=== PATIENT | female | born 1970 | race Caucasian/White ===

== ENCOUNTER 2016-08-03 08:31 | Day surgery (SDC) | payer OTHER ==
--- NOTE | 2016-08-03 07:17 | History and Physical Report ---
DATE: 08/03/2016. CHIEF COMPLAINT: This patient presents with a history of an intractable lumbar radiculitis. HISTORY OF PRESENT ILLNESS: Due to the failure of all therapies, a spinal cord stimulator trial was conducted with 75 to 90 percent pain control. Due to the failure of previous therapies and the success of the trial, she presents today for implantation of a permanent system. PAST MEDICAL HISTORY: Asthmatic bronchitis, hypertension. PAST SURGICAL HISTORY: To be provided. EMPLOYMENT STATUS: Works stores despatch hand. MEDICATIONS ON ADMISSION: To be provided. ALLERGIES: Penicillin, sulfa, Ceclor, Keflex. SOCIAL HISTORY: Caffeine. FAMILY HISTORY: Asthma, diabetes, coronary artery disease, hypertension. REVIEW OF SYSTEMS: The patient is appropriate and in no acute distress. The remainder of the systems reviews shows glasses, hearing aids, breathing difficulties, sleep disturbance, blood pressure issues, bladder dysfunction, depression, difficulty sleeping. PHYSICAL EXAMINATION: General: Height is 5 feet, 8 inches. Weight is 220 pounds. Vital Signs: Unavailable. HEENT: Within normal limits. Lungs: Clear. Heart: Regular rate and rhythm. Abdomen: Nontender. Musculoskeletal: Examination of the musculoskeletal system shows diffuse tenderness in the lumbar spine. Range of motion produces pain into both legs. Ambulation: No assistive device utilized. Neurologic: Cranial nerves are intact. IMPRESSION: LUMBAR RADICULITIS, ICD-10 CODE M54.16 AND M54.17. PLAN: Due to the failure of all therapies and the success of the trial, she presents today for implantation of a permanent system. All of the potential risks, side effects, and complications have been carefully reviewed and discussed including dural puncture, spinal headache, spinal cord injury, and nerve root trauma. The information provided by the outside sales account executive was carefully reviewed and discussed. The information was provided for the patient for her own review. All questions were answered. She has consented and will have the procedure today. We will consider this outpatient, although an overnight stay will be evaluated. NAM MCGRATH D.O. Date & Time cc: Erinn Peralta Dr. JOB NUMBER: [id number] [facility]
[~2016-08-03 08:31] MED LIST: CLINDAMYCIN 600MG/50ML PREMIX 600 MG/50 ML BAG IVPB ONE; FAMOTIDINE 20MG TABLET PO ONE; MECLIZINE 25 MG TABLET PO ONE; METOCLOPRAMIDE 10 MG TABLET PO ONE
[2016-08-03] MEDS ORDERED: ACETAMINOPHEN 325 MG TAB PO PRN ×2 (12:29)
[2016-08-03] MEDS ORDERED: HYDROCODONE/APAP 7.5/325MG TABLET PO PRN ×2 (12:29)
[2016-08-03] MEDS ORDERED: DIPHENHYDRAMINE HCL IV 50 MG/ML VIAL IVP PRN ×2 (12:29)
[2016-08-03] MEDS ORDERED: TEMAZEPAM 15 MG CAPSULE PO PRN ×2 (12:29)
[2016-08-03] MEDS ORDERED: AL HYDROX/MAG HYDROX 30ML UD PO PRN (12:29)
[2016-08-03] MEDS ORDERED: METOCLOPRAMIDE 10 MG TABLET PO PRN (12:29)
[2016-08-03] MEDS ORDERED: HYDROMORPHONE HCL 2 MG/ML VIAL IM PRN (12:29)
[2016-08-03] MEDS ORDERED: SENNOSIDES/DOCUSATE SODIUM UD CAPSULE PO PRN ×2 (12:29)
[2016-08-03] MEDS ORDERED: DIPHENHYDRAMINE HCL 25 MG CAPSULE PO PRN ×2 (12:29)
[2016-08-03] MEDS ORDERED: HYDROMORPHONE HCL 1 MG/ML CPJ IM PRN (12:29)
[2016-08-03] MEDS ORDERED: OXYCODONE/APAP 10MG-325MG TABLET PO PRN (12:29)
[2016-08-03] MEDS ORDERED: METOCLOPRAMIDE HCL 10 MG/2 ML VIAL IVP PRN (12:29)
[2016-08-03] MEDS: OXYCODONE/APAP 10MG-325MG TABLET PO PRN ×2 (13:40→18:37)
[2016-08-03] MEDS ORDERED: LIDOCAINE 2% MDV (20MG/ML) 20ML VIAL IV ONE (14:00)
[2016-08-03] MEDS ORDERED: MIDAZOLAM HCL 2MG/2ML VIAL IV ONE (14:00)
[2016-08-03] MEDS ORDERED: PROPOFOL 10 MG/ML VIAL IV ONE (14:00)
[2016-08-03] MEDS ORDERED: *PACU ONLY* KETAMINE HCL 10 MG/ML (20ML) VIAL IV ONE (14:00)
[2016-08-03] MEDS ORDERED: HYDROMORPHONE HCL 2 MG/ML VIAL IV ONE ×2 (14:00→16:47)
--- NOTE | 2016-08-03 15:44 | Operative Note - Ferro ---
DATE OF SURGERY: 08/03/16 PREOPERATIVE DIAGNOSIS: LUMBAR RADICULITIS, ICD-10 CODE = M54.16 AND M54.17. OPERATION: 1. FLUOROSCOPICALLY-GUIDED EPIDURAL ACCESS LEFT T11/12, PLACEMENT OF SPINAL CORD STIMULATOR LEAD 1, A [employer] INFINION 16 WITH 16 ELECTRODES POSITIONED LEFT T6. 2. COMPLEX PROGRAMMING LEAD 1, 20 MINUTES. 3. FLUOROSCOPICALLY-GUIDED EPIDURAL ACCESS LEFT T12/L1, PLACEMENT OF SPINAL CORD STIMULATOR LEAD 2, A [employer] INFINION 16 WITH 16 ELECTRODES POSITIONED RIGHT T6. 4. COMPLEX PROGRAMMING LEAD 2, 20 MINUTES. 5. INCISION, SUBCUTANEOUS DISSECTION, AND ANCHORING OF LEAD 1 AND LEAD 2 TO SUPRASPINOUS FASCIA USING [employer] LOCKING ANCHOR. 6. INCISION, SUBCUTANEOUS DISSECTION, AND CREATION OF SUBCUTANEOUS POUCH AT LEFT POSTERIOR GLUTEAL MARGIN FOR PLACEMENT OF GENERATOR IDENTIFIED A [employer] PROGRAMMABLE RECHARGEABLE. 7. TUNNELING BETWEEN POUCHES. PLACEMENT OF EXTERNAL PORTION OF LEAD 1 AND LEAD 2 INTO GENERATOR POUCH EACH LEAD INTERFACED WITH A BIFURCATED EXTENSION, EACH BIFURCATED EXTENSION INTERFACED TO GENERATOR. 8. PLACEMENT OF GENERATOR IN POUCH SECURING TO FASCIA WITH NONABSORBABLE SUTURE. PLACEMENT OF LEADS INTO POUCH. CLOSURE OF BOTH INCISIONS VICRYL FOR FASCIA AND RUNNING SUBCUTICULAR VICRYL FOR SKIN. DERMABOND CLOSURE. 9. COMPLEX PROGRAMMING INTERNAL GENERATOR, RECOVERY ROOM, HOME USE, TWO STIMULATORS, 20 MINUTES. SURGEON: NAM MCGRATH D.O. ANESTHESIA: LOCAL SEDATION. ANESTHESIA PROVIDER: JORGE YIN CRNA INDICATION: This patient presents with a history of an intractable lumbar radiculitis. Due to the failure of therapy, spinal cord stimulator trial is conducted with 75-90% pain control. Due to the failure of other therapies and the success of the trial, the patient presents for implantation of a permanent system. DESCRIPTION OF PROCEDURE: Intravenous line, vital sign monitoring, IV sedation. Prepped and draped with sterile technique. Under imaging, the epidural interspace at T11/12 and T121/1 on the left were identified and marked after the skin was infiltrated. Two separate curved access Epimed needles with [id number] into the space. At 11/12, spinal cord stimulator, lead 1, a [employer] Infinion 16 with 16 electrodes positioned left of midline at T6. With the epidural access at /, curved access Epimed needle, spinal cord stimulator lead 2, also an Infinion 16 with 16 electrodes positioned right at T6. Complex programming of lead 1, over 20 minutes followed by complex programming of lead 2, over 20 minutes resulting in patterns of stimulation across the back and into the legs. Patient indicating we were in all of the appropriate areas of her pain. She was given the option to implant or continue to program; she opted to implant. Questions were repeated with the same response. The skin above and below both needles was infiltrated, incision made, and subcutaneous dissection was conducted to the supraspinous fascia. The needles were removed and each lead was anchored to the fascia with a [employer] [place] and nonabsorbable suture. At the left posterior/superior gluteal margin or a site picked by the patient for the generator identified as a [employer]mable Rechargeable, skin infiltrated, incision made, and subcutaneous dissection was conducted to form a pouch of suitable size and depth for the generator. A tunneling tool was used to carry the leads into the generator pouch and then each lead was interfaced with a bifurcated extension. Each bifurcated extension was interfaced to the generator. Antibiotic irrigation and Bovie for hemostasis. The leads were then coiled and placed into the pouch. The generator was placed in the pouch and secured to the fascia with nonabsorbable suture and then the incisions were closed with Vicryl for fascia and running subcuticular Vicryl for skin. Dermabond closure. She was transported to the Recovery Room stable, showing no side-effects from the procedure or the sedation. Because of the amount of surgery, she will be kept overnight for observation and then discharged in the morning. DISCHARGE INSTRUCTIONS: 1. The sites will remain clean and dry. No showering or bathing in any way that would disrupt dressings except the Dermabond will allow showering in 12-24 hours. 2. Standard medications will be resumed including Levaquin, the antibiotic, 500 mg once a day for 14 days. 3. All other instructions relative to the activity levels will be kept low until she is seen in 5-7 days in the office to evaluate the incisional sites. Bend, lift, push, pull should be kept to a minimum. The remainder of the instructions provided, numbers to contact, and problems given. She will then be prepared for discharge in the morning. cc: Dr. Guido JOB [facility]BER: [id number] [facility]
[2016-08-03] MEDS ORDERED: CLINDAMYCIN 600MG/4 ML VIAL IV ONE (16:47)
[2016-08-03] MEDS ORDERED: LIDOCAINE 1% W/EPI 1:200,000 MPF 30ML SQ ONE (16:47)
[2016-08-03] MEDS ORDERED: BUPIVACAINE 0.5% W/EPI MPF 30 ML VIAL IVP ONE (16:47)
[2016-08-03] MEDS: CLINDAMYCIN 600MG/50ML PREMIX 600 MG/50 ML BAG IVPB SCH (16:53)
[2016-08-03] MEDS: BACLOFEN 10 MG TABLET PO SCH ×2 (16:53→21:13)
[2016-08-03] MEDS: BUSPIRONE 5 MG TABLET PO SCH (21:07)
[2016-08-03] MEDS: METFORMIN 500 MG TABLET PO SCH (21:09)
[2016-08-03] MEDS: PREGABALIN 50 MG CAPSULE PO SCH (21:12)
[2016-08-03] MEDS: 0.9 % SODIUM CHLORIDE 10ML SYR IVP SCH (21:15)
[2016-08-03] MEDS ORDERED: TOPIRAMATE 100MG TABLET PO SCH (22:00)
[2016-08-03] MEDS ORDERED: ATORVASTATIN 20 MG TABLET PO SCH (22:00)
[2016-08-03] MEDS ORDERED: MONTELUKAST SODIUM 10MG TABLET PO SCH (22:00)
[2016-08-03] MEDS ORDERED: METOPROLOL SUCC 25 MG TAB.ER PO SCH (22:00)
[2016-08-03] MEDS ORDERED: VALSARTAN 80 MG TAB PO SCH (22:00)
[2016-08-03] MEDS ORDERED: MELATONIN 5 MG TABLET PO SCH (22:00)
[2016-08-04] MEDS: OXYCODONE/APAP 10MG-325MG TABLET PO PRN ×3 (01:35→09:29)
[2016-08-04] MEDS: CLINDAMYCIN 600MG/50ML PREMIX 600 MG/50 ML BAG IVPB SCH ×2 (01:37→08:40)
[2016-08-04] MEDS ORDERED: PANTOPRAZOLE SODIUM 40 MG TABLET PO SCH (07:00)
[2016-08-04] MEDS: 0.9 % SODIUM CHLORIDE 10ML SYR IVP SCH (09:20)
[2016-08-04] MEDS: BUSPIRONE 5 MG TABLET PO SCH (09:26)
[2016-08-04] MEDS: METFORMIN 500 MG TABLET PO SCH (09:27)
[2016-08-04] MEDS: PREGABALIN 50 MG CAPSULE PO SCH (09:28)
[2016-08-04] MEDS: BACLOFEN 10 MG TABLET PO SCH (09:28)
--- NOTE | 2016-08-04 12:45 | RADIOLOGY REPORT ---
EXAM: THORACOLUMBAR SPINE, ONE VIEW HISTORY: SPINAL STIMULATOR IMPLANT. TECHNIQUE: An AP view of the thoracic spine and mid to upper portions of the lumbar spine was obtained portable. FINDINGS: Interspinal stimulator leads are in place. The leads appear to enter the spinal canal at the T12-L1 level left of midline. The lead tips project at the T5-T6 level. The leads extend inferiorly and leftward and are not entirely included on the image. Mild levoconvex curvature of the upper thoracic spine is present. No acute fracture nor destructive bone lesion. Mild multilevel degenerative end plate changes identified. IMPRESSION: INTERSPINAL STIMULATOR LEADS IN PLACE, DISCUSSED ABOVE. JOB NUMBER: [id number] [facility]D
== END 2016-08-04 09:45 | disposition home or self-care (01) ==
LOC: SUR 08:31 → MEDSURG 11:41 → SUR 08-04 09:45
PROVIDERS: ATTEND Pain Medicine Interventional Pain Medicine
DX: M54.16 Radiculopathy, lumbar region (principal); M54.17 Radiculopathy, lumbosacral region; E11.9 Type 2 diabetes mellitus without complications; Z79.84 Long term (current) use of oral hypoglycemic drugs; I10 Essential (primary) hypertension; E78.00 Pure hypercholesterolemia, unspecified
CPT/HCPCS: 72020; 95972

== ENCOUNTER 2017-10-11 05:28 | Day surgery (SDC) | payer OTHER ==
[2017-10-11] MEDS ORDERED: CLINDAMYCIN (PEDIATRIC DOSING) 150 MG/ML VIAL IVPB ONE (05:29)
[2017-10-11] MEDS ORDERED: HYDROMORPHONE HCL 2 MG/ML VIAL IV ONE (05:29)
[2017-10-11] MEDS ORDERED: BUPIVACAINE 0.5% W/EPI MPF 30 ML VIAL IVP ONE (05:29)
[2017-10-11] MEDS ORDERED: LIDOCAINE 1% W/EPI 1:200,000 MPF 30ML SQ ONE (05:29)
[2017-10-11] MEDS ORDERED: FENTANYL PF 100MCG/2ML VIAL IV ONE (05:29)
[2017-10-11] MEDS ORDERED: MIDAZOLAM HCL 2MG/2ML VIAL IV ONE (05:29)
[2017-10-11] MEDS ORDERED: PROPOFOL 10 MG/ML VIAL IV ONE (05:29)
[2017-10-11] MEDS ORDERED: FLUMAZENIL 1MG/10ML VIAL IV ONE (05:29)
[2017-10-11] MEDS ORDERED: LIDOCAINE 2% MDV (20MG/ML) 20ML VIAL IV ONE (05:29)
[2017-10-11] MEDS ORDERED: CLINDAMYCIN 600MG/50ML PREMIX 600 MG/50 ML BAG IVPB ONE (06:00)
[2017-10-11] MEDS ORDERED: METOCLOPRAMIDE 10 MG TABLET PO ONE (06:00)
[2017-10-11] MEDS ORDERED: MECLIZINE 25 MG TABLET PO ONE (06:00)
[2017-10-11] MEDS ORDERED: FAMOTIDINE 20MG TABLET PO ONE (06:00)
--- NOTE | 2017-10-11 06:18 | History and Physical - Ferro ---
CHIEF COMPLAINT/HISTORY OF CHIEF COMPLAINT: This patient presents with a history of intractable cervical radiculopathy. Due to the failure of therapy a spinal cord stimulator trial was conducted on 09/19/17 with 75-85% pain control. Due to the failure of all therapy and the success of the trial the patient presents today for implantation of a permanent system. PAST MEDICAL HISTORY: Asthmatic bronchitis and hypertension. PAST SURGICAL HISTORY: Lumbar spinal cord stimulator. MEDICATIONS ON ADMISSION: List to be provided. ALLERGIES: PENICILLIN, SULFA, CECLOR, AND KEFLEX. FAMILY/PSYCHOSOCIAL HISTORY: Social history - Caffeine. Family history - Asthma, diabetes, coronary artery disease, and hypertension. SYSTEMS REVIEW: The patient is appropriate in no acute distress. The remainder of the systems review is positive for glasses, hearing aids, breathing difficulties, sleep disturbance, blood pressure problems, bladder dysfunction, depression, and difficulty sleeping. PHYSICAL EXAMINATION: Height is 5'8", weight is 220. Previous vital signs - Blood pressure 109/53, pulse 64, respiratory rate 18. HEENT: Within normal limits. LUNGS: Clear. HEART: Regular rate and rhythm. ABDOMEN: Nontender. MUSCULOSKELETAL: Examination of the musculoskeletal system shows diffuse tenderness throughout the cervical spine. Range of motion does produce pain into the shoulders and arms, left greater than right. Motor and sensory field function shows no sensory abnormalities. There is no appreciable motor weakness to the upper extremities. NEUROLOGIC: Cranial nerves are intact. IMPRESSION: CERVICAL RADICULITIS, ICD-10 CODE M54.12. PLAN: The patient is here for implant of a spinal cord stimulator for the cervical region. The potential risks, side effects, and complications have all been carefully reviewed and discussed. The procedure will be considered outpatient, an overnight stay will be evaluated. JOB NUMBER: [id number] [facility]
[2017-10-11] MEDS ORDERED: RINGERS SOLUTION,LACTATED 1,000 ML IV SCH (10:55)
[2017-10-11] MEDS ORDERED: METOCLOPRAMIDE HCL 10 MG/2 ML VIAL IVP PRN (10:55)
[2017-10-11] MEDS ORDERED: HYDROMORPHONE HCL 2 MG/ML VIAL IM PRN ×2 (10:55)
[2017-10-11] MEDS ORDERED: DIPHENHYDRAMINE HCL 25 MG CAPSULE PO PRN ×2 (10:55)
[2017-10-11] MEDS ORDERED: ACETAMINOPHEN 325 MG TAB PO PRN ×2 (10:55)
[2017-10-11] MEDS ORDERED: DIPHENHYDRAMINE HCL 50 MG/ML VIAL IVP PRN ×2 (10:55)
[2017-10-11] MEDS ORDERED: HYDROCODONE/APAP 7.5/325MG TABLET PO PRN ×2 (10:55)
[2017-10-11] MEDS ORDERED: AL HYDROX/MAG HYDROX 30ML UD PO PRN (10:55)
[2017-10-11] MEDS ORDERED: SENNOSIDES/DOCUSATE SODIUM UD CAPSULE PO PRN ×2 (10:55)
[2017-10-11] MEDS ORDERED: OXYCODONE/APAP 10MG-325MG TABLET PO PRN (10:55)
[2017-10-11] MEDS ORDERED: TEMAZEPAM 15 MG CAPSULE PO PRN ×2 (10:55)
[2017-10-11] MEDS ORDERED: METOCLOPRAMIDE 10 MG TABLET PO PRN (10:55)
[2017-10-11] MEDS ORDERED: BACLOFEN 10 MG TABLET PO PRN (11:19)
[2017-10-11] MEDS: OXYCODONE/APAP 10MG-325MG TABLET PO PRN (12:17)
[2017-10-11] MEDS: LOSARTAN POTASSIUM 100 MG TABLET PO SCH (13:27)
[2017-10-11] MEDS: VENLAFAXINE ER 75 MG CAPSULE PO SCH (13:27)
[2017-10-11] MEDS: METOPROLOL SUCC 25 MG TAB.ER PO SCH (13:28)
[2017-10-11] MEDS: EZETIMIBE 10 MG TABLET PO SCH (13:29)
[2017-10-11] MEDS: CHOLECALCIFEROL 1,000 UNIT TABLET PO SCH (13:29)
--- NOTE | 2017-10-11 15:27 | Operative Note - Ferro ---
DATE OF SURGERY: 10/11/17 PREOPERATIVE DIAGNOSIS: CERVICAL RADICULOPATHY, ICD-10 CODE = M54.12. OPERATION: 1. FLUOROSCOPICALLY-GUIDED PLACEMENT OF EPIDURAL NEEDLE T1-2 RIGHT WITH LOSS-OF- RESISTANCE TECHNIQUE. PLACEMENT OF SPINAL CORD STIMULATOR LEAD 1, [employer] INFINION 16 WITH 6 ELECTRODES POSITIONED LEFT C2. 2. FLUOROSCOPICALLY-GUIDED EPIDURAL ACCESS RIGHT T2-3, PLACEMENT OF SPINAL CORD STIMULATOR LEAD 2, [employer] INFINION 16 WITH 6 ELECTRODES POSITIONED RIGHT AT C2. 3. COMPLEX PROGRAMMING LEAD 1 OVER 20 MINUTES FOLLOWED BY COMPLEX PROGRAMMING OF LEAD 2 OVER 20 MINUTES. 4. INCISION, SUBCUTANEOUS DISSECTION, AND ANCHORING OF LEAD 1 AND LEAD 2 TO DEEP FASCIA USING A [employer] LOCKING ANCHOR. 5. INCISION, SUBCUTANEOUS DISSECTION, AND CREATION OF A SUBCUTANEOUS POUCH AT RIGHT POSTERIOR GLUTEAL MARGIN FOR PLACEMENT OF GENERATOR IDENTIFIED A [employer] WAVEWRITER PROGRAMMABLE RECHARGEABLE. 6. TUNNELING BETWEEN LEAD POUCHES AND GENERATOR POUCH WITH INTERMEDIATE INCISION FOR EXTENSIONS. 7. INTERFACE EACH LEAD WITH EXTENSION, TWO EXTENSIONS EACH LEAD. EXTENSIONS BY WAY OF INTERMEDIATE INCISION TUNNELED INTO GENERATOR POUCH, EXTENSIONS INTERFACED TO GENERATOR. 8. PLACEMENT OF GENERATOR INTO POUCH, SECURED TO POSTERIOR FASCIA WITH NONABSORBABLE SUTURE. PLACEMENT OF LEADS INTO POUCH. CLOSURE OF INCISIONS INCLUDING INTERMEDIATE WITH STRATAFIX, 2-0 FASCIA, 3-0 SKIN. 9. INCISION, SUBCUTANEOUS DISSECTION, AND REPLACEMENT, REMOVAL AND REPLACEMENT OF INTERNAL GENERATOR AT LEFT POSTERIOR GLUTEAL MARGIN FOR LUMBAR STIMULATOR. REPLACEMENT OF GENERATOR WITH NEW WAVEWRITER PROGRAMMABLE RECHARGEABLE. 10. CLOSURE OF INCISION STRATAFIX SUTURE, 2-0 FASCIA, 3-0 SKIN. DERMABOND CLOSURE OVER ALL INCISIONS. 11. PROGRAMMING INTERNAL GENERATOR FOR CERVICAL AND LUMBAR, RECOVERY ROOM, 20 MINUTES, EACH GENERATOR. SURGEON: NAM MCGRATH D.O. ANESTHESIA: LOCAL SEDATION. ANESTHESIA PROVIDER: WALT JERONIMO CRNA. INDICATION: This patient presents with a history of an intractable cervical radiculopathy. Due to the failure of all therapies, a cervical spinal cord stimulator trial was conducted, office-based, with 75-plus percent pain control. Due to the failure of therapy and the success of the stimulator trial, she is here for implantation of a permanent system. Along with this, she has a lumbar system with an older generator. The new WaveWriter generator technology greatly improves stimulation patterns and she is here for replacement of the previous generator with the new WaveWriter generator to the lumbar system. PROCEDURE: Intravenous line, vital sign monitoring, IV sedation, prepped and draped in sterile technique, patient position prone. Sterile prep, sterile technique. The epidural interspace at T1-2 and 2-3 on the right were marked, infiltrated. Using two epidural needles with [id number], the space was accessed. At 1-2, spinal cord stimulator lead 1, a [employer] Infinion 16 with 6 electrodes was positioned left at C2. Epidural access was then accomplished at T2-3 on the right, spinal cord stimulator lead 2, a [employer] Infinion 16 with 6 electrodes was positioned right at C2. Complex programming of lead 1 over 20 minutes followed by complex programming of lead 2 over 20 minutes resulting in complete patterns of stimulation across the neck, shoulder, and arms; patient indicating we are in all of the areas of the pain. She was given the options to implant, remove, or continue to program; she opted to implant. Questions repeated with the same response. The skin above and below both needles infiltrated, incision made, and subcutaneous dissection was conducted to the supraspinous fascia. The needles were removed and each lead was anchored to the supraspinous fascia with a [employer] [place]. At the right posterior gluteal margin, a site picked by the patient for the generator, skin infiltrated, incision made, and subcutaneous dissection was conducted to form a pouch of suitable size and depth for the generator identified as a [employer] [place] [employer] WaveWriter. A tunneling tool was used to carry the leads to a midpoint where a third incision was made. The leads were surfaced through the incision and then each bifurcated lead was interfaced with an extension. The extensions were then tunneled from this midpoint down into the generator pouch. Antibiotic irrigation and Bovie for hemostasis. Each of the extensions was then interfaced to the generator. The generator was placed into the pouch and secured to the posterior fascia with nonabsorbable suture. The three incisions were then closed using STRATAFIX suture, 2-0 for fascia, 3- 0 for skin. At the left posterior gluteal margin generator pouch, skin infiltrated, incision made, and subcutaneous dissection was conducted to the generator. The generator was then exteriorized. The new WaveWriter generator was placed onto the field then interfaced to the existing leads. Antibiotic irrigation. Bovie for hemostasis. By the patient's request, the generator pouch was revised and deepened. The generator was then placed into the pouch and the incision was closed using STRATAFIX suture, 2-0 for fascia, 3-0 for skin. A Dermabond closure was then used to approximate all incisions. She was transported to the Recovery Room stable. No no side-effects from the procedure or the sedation. When fully awake and alert, complex programming of the two generators was then performed re-establishing stimulation and pain control to all of the appropriate areas. She was instructed on the use of the system and will be kept overnight for observation and discharged in the morning. DISCHARGE INSTRUCTIONS IN THE MORNIN. Sites will remain clean and dry. No showering or bathing in any way that would result in loss of integrity of the dressings. Although the Dermabond will allow showering, she cannot sit in water. 2. Standard medications resumed including Levaquin, the antibiotic, 500 mg once a day for 14 days. 3. The office will contact the patient in the next 24-48 hours to set up a time in 7-10 days to evaluate the sites. Until then, she is to keep her activities low. All other instructions provided, numbers to contact, problems given. She will be discharged in the morning. cc: Dr. Lata Washington JOB NUMBER: [id number] [facility]
[2017-10-11] MEDS: CLINDAMYCIN 600MG/50ML PREMIX 600 MG/50 ML BAG IVPB SCH ×2 (16:09→23:01)
[2017-10-11] MEDS ORDERED: TOPIRAMATE 25MG TABLET PO SCH (17:00)
[2017-10-11] MEDS ORDERED: ATORVASTATIN 20 MG TABLET PO SCH (22:00)
[2017-10-11] MEDS ORDERED: MONTELUKAST SODIUM 10MG TABLET PO SCH (22:00)
[2017-10-11] MEDS: BUSPIRONE 5 MG TABLET PO SCH (22:19)
[2017-10-12] MEDS: OXYCODONE/APAP 10MG-325MG TABLET PO PRN ×2 (01:08→08:07)
[2017-10-12] MEDS: CLINDAMYCIN 600MG/50ML PREMIX 600 MG/50 ML BAG IVPB SCH (06:48)
[2017-10-12] MEDS ORDERED: PANTOPRAZOLE SODIUM 40 MG TABLET PO SCH (07:00)
[2017-10-12] MEDS: VENLAFAXINE ER 75 MG CAPSULE PO SCH (09:35)
[2017-10-12] MEDS: LOSARTAN POTASSIUM 100 MG TABLET PO SCH (09:35)
[2017-10-12] MEDS: BUSPIRONE 5 MG TABLET PO SCH (09:35)
[2017-10-12] MEDS: METOPROLOL SUCC 25 MG TAB.ER PO SCH (09:35)
[2017-10-12] MEDS: EZETIMIBE 10 MG TABLET PO SCH (09:36)
[2017-10-12] MEDS: CHOLECALCIFEROL 1,000 UNIT TABLET PO SCH (09:36)
--- NOTE | 2017-10-12 14:04 | RADIOLOGY REPORT ---
EXAM: LUMBAR SPINE HISTORY: STIMULATOR PLACEMENT. TECHNIQUE: A portable AP view of the lumbar spine was performed. FINDINGS: The stimulator lead tips are at the T6 and T7 level. IMPRESSION: STIMULATOR LEAD TIPS ARE AT THE T6 AND T7 LEVEL. JOB NUMBER: [id number] [facility]D
[2017-10-13] MEDS ORDERED: METFORMIN 500 MG TABLET PO SCH (08:00)
== END 2017-10-12 11:08 | disposition home or self-care (01) ==
LOC: SUR 05:28 → MEDSURG 10:23 → SUR 10-12 11:08
PROVIDERS: ATTEND Pain Medicine Interventional Pain Medicine
DX: M54.12 Radiculopathy, cervical region (principal); E11.9 Type 2 diabetes mellitus without complications; Z79.4 Long term (current) use of insulin; E78.00 Pure hypercholesterolemia, unspecified; I10 Essential (primary) hypertension; G47.33 Obstructive sleep apnea (adult) (pediatric); I25.2 Old myocardial infarction
CPT/HCPCS: 72020; 85002; 95972; C1820; C1883; J1200; J7120